=== PATIENT | female | born 1965 | race Caucasian/White ===

== ENCOUNTER → 2016-10-31 | Day surgery (SDC) | payer OTHER ==
[~2016-10-31] VITALS: Ht 157.5 cm; Wt 64.0 kg
[~2016-10-31] MED LIST: 0.9% Sodium Chloride 1,000 ML IV SCH; ACET325T51 PO; MULT1CAP33 PO; OMEP20CA11 PO; PHEN-684 PO; Sodium Chloride LOK Flush 10 mL Syringe IV PRN; fentaNYL-PF 50 mCg/mL 2 mL Inj IVPUSH PRN
[2016-10-31 08:08] VITALS: BP 138/88; PULSE 81; RESP 16; O2SAT 100
--- NOTE | 2016-10-31 09:53 | PCM.ENDEGD ---
EGD Date of Service: Oct 31, 2016 Physician Felix Todd MD Pre Procedure Diagnosis: Dysphagia Post Procedure Dx & Findings: Schatzki's ring and esophagitis Procedure Esophagogastroduodenoscopy PROCEDURE IN DETAIL: After proper sedation, Olympus video endoscope was inserted into patient's mouth and esophagus was successfully intubated. Scope introduced esophagus. Esophagus showed normal shiny whitish mucosa consistent with squamous cell component. Z line was at 40 cm from the incisors. Edema and redness inflammation noted mild to moderate. Patient also has Schatzki's ring. Narrowing is moderate. Dilation done from 12, 13.5, and 15 mm. 30 seconds intervals between each dilation and at 15 mm 1 minute duration. No significant tear noted at 15 mm. Biopsies obtained at the esophagitis and Schatzki's ring. Scope further advanced to the stomach. Stomach showed normal shiny mucosa with normal appearing rugae folds without any ulcer mass erosion. Cardia fundus body antrum pylorus were all visualized. Retroflexion was done. Stomach was easily inflated and deflatable using air. Scope further advanced to the distal duodenum. Duodenum revealed normal villous structures with normal appearing folds without any mass ulcer erosion. Impression Esophagitis with biopsy Schatzki's ring as well as dilation with biopsy Recommendation Continue PPI Presedation Assessment Risks and Benefits Informed consent was obtained from the patient after all risks and benefits including but not limited to drug reaction, infection, pain, bleeding, perforation, as well as alternatives were discussed. Patient monitoring Continuous pulse oximetry, cardiac monitoring, blood pressure monitoring, IV access, and oxygen at 2L per nasal cannula. Periprocedural Fentanyl: Fentanyl 175mcg Incrementally Midazolam: Midazolam 9mg Incrementally Complications There were no periprocedural complications identified. Post Procedure Plan Post Procedure Recommendations 1. Restrict activities today. 2. Resume normal activities in the morning. 3. Resume medications. 4. GERD behavioral modification: - Avoid fatty, acidic, spicy, large meals - Do not lie down after meals - Do not eat or drink anything for at least 2 1/2 hours before going to bed at night - Discontinue tobacco and alcohol - Decrease or avoid caffeine - Avoid chocolate and mints - Decrease weight - Avoid aspirin and non steroidal anti-inflammatory agents (NSAID) such as Aleve, Advil, Mobic, Naproxen, Ibuprofen, etc 5. Add proton pump inhibitor. Take 30 minutes before 1st meal of the day. 6. Patient informed of normal post procedure side effects as bloating, drowsiness, blood streaking in the stool 7. If gastric biopsy reveal H.pylori, continue with appropriate treatment 8. If small bowel biopsy reveals celiac, continue with appropriate treatment 9. Please don't hesitate to call me with any questions Felix Todd MD Oct 31, 2016 09:53
--- NOTE | 2016-10-31 09:57 | PCM.ENDCOL ---
Colonoscopy Date of Service: Oct 31, 2016 Physician Felix Todd MD Pre Procedure Diagnosis: Screening Post Procedure Dx & Findings: Polyp hemorrhoids Procedure Colonoscopy PROCEDURE IN DETAIL: Prep adequate Withdrawal time 11 minutes After unremarkable rectal examination the Olympus video colonoscope was inserted patient's anal canal and was advanced to cecum. Landmarks were identified including the ileocecal valve and appendiceal orifice. Scope was withdrawn systematically. Visualized colonic mucosa showed healthy shiny mucosa with normal healthy-appearing vasculature. In the transverse colon there was a 5 mm polyp which was removed using cold snare. In the rectum retroflexion was done which showed hemorrhoids. Anal canal was inspected carefully on the way out and hemorrhoids noted. Impression Polyp 1 status post complete removal Hemorrhoids Recommendation Repeat colonoscopy in 5 years Presedation Assessment Risks and Benefits Informed consent was obtained from the patient after all risks and benefits including but not limited to drug reaction, infection, pain, bleeding, perforation, as well as alternatives were discussed. Patient monitoring Continuous pulse oximetry, cardiac monitoring, blood pressure monitoring, IV access, and oxygen at 2L per nasal cannula. Complications There were no periprocedural complications identified. Post Procedure Plan Post Procedure Recommendations 1. Restrict activities today. 2. Resume normal activities in the morning. 3. Resume medications. 4. Patient informed of normal post procedure side effects as bloating, drowsiness, blood streaking in the stool. 5. average risk CRCS. If colon polyps come back as: -Hyperplastic- can repeat colonoscopy in 10 years -Tubular adenoma- repeat colonoscopy in 5 years -Tubulovillous/villous adenoma- repeat colonoscopy in 3 years -If any dysplasia- return to clinic as soon as possible 6. Please don't hesitate to call me with any questions. Felix Todd MD Oct 31, 2016 09:57
[2016-10-31 10:04] VITALS: BP 129/78; PULSE 69; RESP 15; O2SAT 100
[2016-10-31 10:14] VITALS: BP 129/78; PULSE 66; RESP 15; O2SAT 100
--- NOTE | 2016-11-06 14:43 | PATH ---
SURGICAL PATHOLOGY Attending Physician:Felix Todd M.D. CASE STATUS: Signed Out PATIENT NAME: LOUISE SANDY PID: [id number] : 1965 DATE COLLECTED:10/31/2016 20:32 SPECIMEN: 1: Esophagus, Biopsy 2: Colon, Polyp CLINICAL HISTORY: DYSPHAGIC, SCREENING, ESOPHAGITIS, SCHATZKI'S RING, COLON POLYP 1). DISTAL ESOPHAGUS BIOPSY 2). TRANSVERSE COLON POLYP FINAL DIAGNOSIS: 1. Distal Esophagus, Biopsy: Squamocolumnar junctional mucosa with no diagnostic abnormality. Negative for intestinal metaplasia. Negative for dysplasia and malignancy. 2. Transverse Colon, Polyp, Biopsy: Sessile serrated adenoma. ICD10: R13.10 D12.3 GROSS DESCRIPTION: The specimen is received in two formalin filled containers labeled with the patient's name. 1). The specimen is labeled "distal esophagus" and consists of a 0.2 x 0.2 x 0.2 CM portion of tissue which is entirely submitted in cassette 1A. 2). The specimen is labeled "transverse colon polyp and "and consists of a 0.5 x 0.3 x 0.2 CM portion of tissue which is entirely submitted in cassette 2A. 10/31/2016[place] ICD-9 CODES: CPT CODES: 1: 42684 2: 99537 Electronically Signed Out Mallory Miranda MD [facility] Pathology [facility] [address], [place] [address] Technical component performed at [facility], [facility] [address], [place], [address]
== END | disposition home or self-care (01) ==
LOC: END 07:52
PROVIDERS: ATTEND Internal Medicine
DX: Z12.11 Encounter for screening for malignant neoplasm of colon (principal); D12.3 Benign neoplasm of transverse colon; K64.8 Other hemorrhoids; K20.9 Esophagitis, unspecified; K22.2 Esophageal obstruction
CPT/HCPCS: 43239; 43249; 45385; 99153; G0500; J2250; J3010; J7030